=== PATIENT | male | born 1945 | race Caucasian/White ===

== ENCOUNTER → 2018-03-27 | Outpatient (CLI) | payer MEDICARE, OTHER ==
[~2018-03-27] MED LIST: ACHYD1T PO; AMLO10TA82 PO; BCL10T PO; CETI10TA17 PO; FIBER THERAPY PO; HYDR-2890 PO; IOHEXOL 350 MG/ML 100 ML (OMNIPAQUE 350) VIAL IV ONE; NS 250 ML (IVPB) BAG IV ONE; OPTH OD; PRED5DRO2I OU; PROLENSA OD; TRM50T PO; [UNRECOGNIZED DRUG - OTHER] OP
[2018-03-27 10:34] LABS: BUN/CREATININE RATIO 23; CREATININE SERUM 0.87 MG/DL (0.60-1.30); GFR ESTIMATED > 60
--- NOTE | 2018-03-27 12:16 | Diagnostic Imaging Report ---
PROCEDURE: CT angiography of the head with and without contrast. TECHNIQUE: Noncontrast CT of the head was obtained. Subsequently, after intravenous administration of contrast, thin section axial CT angiography of the head was performed. Source data was reformatted into multiple 2D MIP reformats. Delayed postcontrast acquisition of the head was also acquired. INDICATION: Intracranial aneurysm. Comparison is made to study of 05/02/2016. Ventricles and sulci are mildly prominent but not appreciably changed when compared to previous study. There is no evidence of intracranial hemorrhage. The large aneurysm appears to arise from the left M1 segment now measures approximately 1.4 x 1.4 x 1.6 cm. This indicates slight interval increase, however, there is no evidence of rupture, hemorrhage or intraluminal filling defect. The left M2 and A1 segments arise from the aneurysm sac. Cerebral arteries are otherwise widely patent throughout the head. No new aneurysm or vascular malformation is identified. No other abnormal contrast enhancement is seen. IMPRESSION: Mild overall increase in size of aneurysm involving the proximal left middle cerebral artery as described. No other adverse change is detected. Dictated by: Dictated on workstation # [id number]
== END ==
LOC: RAD 10:02
PROVIDERS: ATTEND Internal Medicine
DX: I67.1 Cerebral aneurysm, nonruptured (principal)
CPT/HCPCS: 36415; 70496; 82565; 84520

== ENCOUNTER 2018-06-07 05:36 | Outpatient (CLI) | payer MEDICARE, OTHER ==
[~2018-06-07] VITALS: Ht 185.4 cm; Wt 124.7 kg
[~2018-06-07 05:36] MED LIST changes: -IOHEXOL 350 MG/ML 100 ML (OMNIPAQUE 350) VIAL IV ONE; -NS 250 ML (IVPB) BAG IV ONE
[2018-06-07] MEDS ORDERED: AMLO10TA6 PO (10:39)
[2018-06-07] MEDS ORDERED: TIMO5DRO5 OP (10:39)
[2018-06-07] MEDS ORDERED: LATA2.5D5 OP (10:39)
[2018-06-07] MEDS ORDERED: DEXT350P5 PO (10:39)
== END 2018-06-07 10:43 | disposition home or self-care (01) ==
LOC: PREOP 05:36
PROVIDERS: ATTEND Internal Medicine
DX: Z01.818 Encounter for other preprocedural examination (principal)

== ENCOUNTER 2018-08-23 05:39 | Outpatient (CLI) | payer MEDICARE, OTHER ==
[~2018-08-23] VITALS: Ht 185.4 cm; Wt 124.7 kg
[~2018-08-23 05:39] MED LIST changes: +AMLO10TA7 PO; +DEXT350P5 PO; +LATA2.5D5 OP; +TIMO5DRO5 OP
== END 2018-08-23 12:18 | disposition home or self-care (01) ==
LOC: PREOP 05:39
PROVIDERS: ATTEND Internal Medicine
DX: Z01.818 Encounter for other preprocedural examination (principal)

== ENCOUNTER 2018-08-30 07:25 | Day surgery (SDC) | payer MEDICARE, OTHER ==
--- NOTE | 2018-05-30 16:35 | HISTORY AND PHYSICAL ---
DATE OF SERVICE: COLONOSCOPY HISTORY AND PHYSICAL HISTORY OF PRESENT ILLNESS: The patient is a 73-year-old white male referred for screening colonoscopy. The patient seemed to be of higher than average risk as his father was diagnosed with colon cancer in his early 70s. The patient has a past history of adenomatous colon polyps. On his last colonoscopy in 03/2012, he had no evidence for neoplasia. Since that time, he has noted no problems with bright red blood per rectum or melena. He denies any bowel habit change. Both he and his have been doing an intermittent fast and they have been slowly losing weight over the last couple of months as I recall 5 to 6 pounds. There has been no inadvertent weight loss or change in bowel habit. PAST SURGICAL HISTORY: He underwent right total hip replacement for arthritis in 2012. PAST MEDICAL HISTORY: Significant for hypertension and glaucoma. PRESCRIPTION MEDICATIONS: Include amlodipine 10 mg daily, latanoprost 0.005 one drop OU each evening, timolol optic solution one drop OU each morning. ADDITIONAL MEDICAL HISTORY: Inadvertently a small left intracerebral aneurysm was found several years ago. Recent CT revealed slightly increased in size, 1 mm from 3 to 4 mm, he reports remains asymptomatic with no past history of CVA or problems with headache or any other neurologic change. SOCIAL HISTORY: The patient is , retired with no past smoking or significant alcohol intake. FAMILY HISTORY: Pertinent for father diagnosed with colon cancer in his early 70s. He is not aware of any other family members history of polyps or cancer. PHYSICAL EXAMINATION: GENERAL: Reveals a pleasant white male, appears to be in no acute distress. VITAL SIGNS: Weight is 284.4 pounds. HEENT: Unremarkable. He has a Mallampati class 3 oropharyngeal configuration. Oropharynx is unremarkable, no erythema is noted. CHEST: Clear to auscultation. CARDIOVASCULAR: Reveals a regular rate and rhythm without murmur, S3 or S4. ABDOMEN: Soft, supple, obese, nontender without mass, organomegaly or tenderness. Bowel sounds are positive. No bruits are noted. No evidence for abdominal aortic aneurysm was noted. EXTREMITIES: Reveal no cyanosis, clubbing or edema. ASSESSMENT AND PLAN: The patient is set up for surveillance colonoscopy on 06/14. Prep instructions with split dose Colyte were given and the patient's questions were answered. He is to abstain from aspirin and nonsteroidal medications. He does not normally take. I thank you for the referral of this pleasant gentleman. Sincerely, Job ID: [id number] DocumentID: [id number] Dictated Date: 05/16/2018 17:11:12 Edge Trimmer Mechanic Date: 05/16/2018 17:59:04 Dictated By: KAYLA TEMPLE MD MTDD
--- NOTE | 2018-08-16 10:42 | HISTORY AND PHYSICAL ---
DATE OF SERVICE: COLONOSCOPY HISTORY AND PHYSICAL DATE OF ADMISSION: 08/30/2018. HISTORY OF PRESENT ILLNESS: The patient is a 73-year-old white male referred for screening colonoscopy. He has a distant past history of colon polyps and he was initially evaluated in May 2018, but had to postpone colonoscopy. He reports there have been no interval changes since his evaluation on the 05/16, has been feeling well, has had no bowel habit change, abdominal pain and has noted no bright red blood per rectum or melena. There have been no other changes in his health history. PHYSICAL EXAMINATION: GENERAL: Reveals a well-appearing white male in no acute distress. VITAL SIGNS: Blood pressure 142/86. HEENT: Unremarkable. CHEST: Clear to auscultation. CARDIOVASCULAR: Reveals regular rate and rhythm without murmur, S3 or S4. ABDOMEN: Obese, soft, supple without mass, organomegaly or tenderness. EXTREMITIES: Reveal no cyanosis, clubbing or edema. ASSESSMENT: The patient was set up for 08/30 for screening colonoscopy. The patient still had prep instructions from initial visitation with prescriptions. Job ID: [id number] DocumentID: [id number] Dictated Date: 08/16/2018 10:33:36 Manufacturing Engineer Paint Date: 08/16/2018 10:42:01 Dictated By: KAYLA TEMPLE MD
[~2018-08-30] VITALS: Ht 185.4 cm; Wt 124.7 kg
[2018-08-30] MEDS ORDERED: D5 LR IV SOLUTION 1,000 ML IV ONE (07:35)
[2018-08-30] MEDS ORDERED: D5 LR IV SOLUTION 1,000 ML IV STA (07:36)
[2018-08-30 07:43] VITALS: BP 146/89
[2018-08-30] MEDS ORDERED: fentaNYL INJECTION 100 MCG/2 ML AMP IVP ONE (07:45)
[2018-08-30] MEDS ORDERED: LIDOCAINE JELLY 2% 6 ML SYRINGE MM PRN (07:45)
[2018-08-30] MEDS ORDERED: MIDAZOLAM 2 MG/2 ML (VERSED) VIAL IVP ONE (07:45)
[2018-08-30] MEDS ORDERED: MIDAZOLAM 2 MG/2 ML (VERSED) VIAL ONE (08:03)
[2018-08-30] MEDS ORDERED: LIDOCAINE JELLY 2% 6 ML SYRINGE ONE (08:03)
[2018-08-30] MEDS ORDERED: fentaNYL INJECTION 100 MCG/2 ML AMP ONE (08:03)
--- NOTE | 2018-08-30 08:34 | Pre-Op Note & Conscious Sedat ---
Pre-Operative Progress Note H&P Reviewed The H&P was reviewed, patient examined and no changes noted. Date H&P Reviewed: Aug 30, 2018 Time H&P Reviewed: 07:55 Conscious Sedation Pre-Proced ASA Score 2 For ASA 3 and 4: Consider anesthesia and medical clearance. Also, for patients with a history of failed moderate sedation consider anesthesia. Airway Lungs Heart ASA score ASA 1: a normal healthy patient ASA 2: a patient with a mild systemic disease (mid diabetes, controlled hypertension, obesity ASA 3: a patient with a severe systemic disease that limits activity (angina , COPD, prior Myocardial infarction) ASA 4: a patient with an incapacitating disease that is a constant threat to life (CHF, renal failure) ASA 5: a moribund patient not expected to survive 24 hrs. (ruptured aneurysm) ASA 6: a declared brain- patient whose organs are being harvested. For emergent operations, add the letter E after the classification Mallampati Classification Grade 3 Sedation Plan Analgesia, Amnesia, Plan communicated to team members, Discussed options with patient/fam, Discussed risks with patient/fam The patient is an appropriate candidate to undergo the planned procedure, sedation, and anesthesia. The patient immediately re-assessed prior to indication. KAYLA TEMPLE MD Aug 30, 2018 08:34
[2018-08-30 09:15] VITALS: BP 132/82
[2018-08-30 09:45] VITALS: BP 132/88
[2018-08-30 10:10] VITALS: BP 132/88
--- NOTE | 2018-08-30 16:58 | OPERATIVE REPORT ---
DATE OF SERVICE: 08/30/2018 COLONOSCOPY SUMMARY INDICATION FOR THE PROCEDURE: Surveillance due to past history of colon polyps. The patient was placed in the left lateral decubitus position. Prior to undergoing colonoscopy, a digital rectal evaluation was performed. Anal sphincter tone was normal. Perianal reflexes intact. No evidence for internal or external hemorrhoids were noted. The prostate was moderately enlarged with uniform consistency to digital inspection and no evidence for nodularity. No other abnormalities noted to digital inspection of the anal canal or distal rectal vault. The colonoscope was then inserted into the rectum and under direct visualization advanced to the cecum. The cecum was identified by identification of the ileocecal valve and cecal strap. Photographic documentation was obtained. Careful inspection was made as the colonoscope was withdrawn. FINDINGS: There was no evidence for internal or external hemorrhoids and the rectum was unremarkable. Present in the distal sigmoid colon was a diminutive hyperplastic appearing polyp, it was biopsied and ablated and submitted for histopathology. There was no subsequent blood loss. The sigmoid colon was unremarkable. No evidence for diverticular disease was appreciated. The descending colon, splenic flexure, transverse colon, hepatic flexure were unremarkable. Present in the proximal ascending colon was a diminutive 2 mm sessile polyp that was biopsied and ablated and submitted for histopathology. The cecum was unremarkable. 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 ASSESSMENT: Two diminutive polyps were removed today, one from the distal sigmoid and the other one from the proximal ascending colon as noted above. If this patient's health remains reasonable, would advocate consideration for repeat screening colonoscopy in 5 years as long as there are no surprises on histopathology report. Digital evaluation of the prostate was compatible with moderate BPH without evidence for prostate nodularity. I thank you for the referral of this pleasant gentleman. Sincerely, Job ID: [id number] DocumentID: [id number] Dictated Date: 08/30/2018 10:23:48 Auto Detailer Date: 08/30/2018 16:57:39 Dictated By: KAYLA TEMPLE MD
== END 2018-08-30 10:10 | disposition home or self-care (01) ==
LOC: ENDO 07:25
PROVIDERS: ATTEND Internal Medicine
DX: Z12.11 Encounter for screening for malignant neoplasm of colon (principal); D12.2 Benign neoplasm of ascending colon; K63.5 Polyp of colon; N40.0 Benign prostatic hyperplasia without lower urinary tract symptoms; Z86.010 Personal history of colon polyps; Z80.0 Family history of malignant neoplasm of digestive organs; I10 Essential (primary) hypertension; H40.9 Unspecified glaucoma; Z79.899 Other long term (current) drug therapy

== ENCOUNTER → 2020-02-10 | Outpatient (CLI) | payer MEDICARE, OTHER ==
--- NOTE | 2020-02-10 16:34 | Diagnostic Imaging Report ---
PROCEDURE: CT left upper extremity without contrast. TECHNIQUE: Multiple contiguous axial images were obtained through the left upper extremity without the use of intravenous contrast. Auto Exposure Controls were utilized during the CT exam to meet ALARA standards for radiation dose reduction. INDICATION: Bilateral shoulder pain. Difficulty lifting and moving. COMPARISON: None. FINDINGS: No acute fracture is seen in the left shoulder. There is superior migration of the humeral head relative to the glenoid. There is severe endstage osteoarthritis in the glenohumeral joint with complete joint space loss, subchondral sclerosis and cyst-like change, and articular surface remodeling. There are severe degenerative changes in the acromioclavicular joint. There is a small left shoulder joint effusion. No focal muscular atrophy is seen. 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 Dictated by: Dictated on workstation # [id number]
--- NOTE | 2020-02-10 19:34 | Diagnostic Imaging Report ---
EXAM: CT right shoulder without contrast. DATE: February 10, 2020. INDICATION: 74-year-old male, right shoulder pain. COMPARISON: None. TECHNIQUE: Axial CT images of the shoulder were obtained without contrast. Coronal and Sagittal as well as three dimensional reconstructions were obtained and provided. All CT scans use one or more of the following dose optimizing techniques: automated exposure control, MA and/or KvP adjustment based on a patient size and exam type, or iterative reconstruction. FINDINGS: There is severe glenohumeral joint space loss with [id number] articulation. There are multiple subchondral cysts in the humeral head and glenoid. There is mild osteophyte formation extending off the inferior aspect of the humeral head. The humeral head is superiorly subluxed. There is no prominent volume loss of the glenoid. The acromioclavicular joint is normally aligned. There is no os acromiale. There are mild acromioclavicular degenerative changes with bulbous clavicle and osteophytes extending 4 mm below the expected joint margin. There is nondiagnostic direct assessment of the rotator cuff tendons on CT. There is no fatty atrophy of the rotator cuff musculature. There is no identified acute fracture. There is no concerning focal bone lesion. The visualized portions of the right lung are clear. IMPRESSION: 1. End-stage glenohumeral arthritis. Differential diagnostic considerations for the cause of the arthritis would include crystalline arthropathy such as CPPD, inflammatory arthropathy, and secondary osteoarthritis. No pronounced volume loss of the glenoid. 2. The humeral head is superiorly subluxed. No identified fatty atrophy of the rotator cuff musculature. Nondiagnostic direct assessment of the rotator cuff tendons. 3. Mild acromioclavicular degenerative changes with bulbous lateral clavicle and osteophytes extending 4 mm below the expected joint margin. No os acromiale. Dictated by: Dictated on workstation # [id number]
== END ==
LOC: RAD 14:41
PROVIDERS: ATTEND Internal Medicine
DX: M19.012 Primary osteoarthritis, left shoulder (principal); M19.011 Primary osteoarthritis, right shoulder; M25.711 Osteophyte, right shoulder
CPT/HCPCS: 73200